=== PATIENT | female | born 1935 | race Caucasian/White ===

== ENCOUNTER → 2016-06-28 | Outpatient (CLI) | payer MEDICARE, OTHER ==
--- NOTE | 2016-06-30 03:49 | EEG ---
DATE OF SERVICE: 06/28/2016 EEG NUMBER: [id number] OBJECTIVE: This is a 80-year-old female patient with history of dementia and confusion. EEG was requested to evaluate cerebral activity and help rule out subclinical seizure. METHODS: Twenty electrodes were applied according to the international 10-20 electrode placement system. EKG monitoring, hyperventilation, intermittent photic stimulation, monopolar and bipolar montages are routinely utilized. The record was obtained on a digital system with video monitoring. FINDINGS: 1. Background: The patient was recorded in the awake, drowsy and sleep states. The overall background amplitude is 5-10 microvolts. A posterior dominant rhythm of 8 Hz is observed. 2. Abnormalities: No specific epileptiform discharge or electrographic seizure is seen. No focal or diffuse slowing, artifact noted. 3. Activation: Hyperventilation was performed with good efforts and normal response. Intermittent photic stimulation was performed with photic driving. Photoparoxysmal response was noted. No specific epileptiform discharge or electrographic seizure induced. IMPRESSION: This EEG is a borderline study for the awake, drowsy, and sleep states. The overall background amplitude is mildly low. Photoparoxysmal response noted. No focal, lateralizing, specific epileptiform discharge or electrographic seizure is seen. MIKE BRENNER MD DR: FEMI/so JOB#: [id number] / [id number] REX
== END | disposition home or self-care (01) ==
LOC: RT 08:15
PROVIDERS: ATTEND Psychiatry & Neurology Neurology
DX: F03.90 Unspecified dementia, unspecified severity, without behavioral disturbance, psychotic disturbance, mood disturbance, and anxiety (principal)
CPT/HCPCS: 95816

== ENCOUNTER 2019-10-24 10:13 | Inpatient (IN) | payer MEDICARE, OTHER ==
[~2019-10-24] VITALS: Ht 162.6 cm; Wt 69.7 kg
[2019-10-24 09:28] VITALS: BP 125/86
[2019-10-24] MEDS ORDERED: POTASSIUM CHLORIDE 20 MEQ TABLET.ER. PO ONE (11:15)
[2019-10-24 11:30] VITALS: BP 143/64
--- NOTE | 2019-10-24 11:47 | HP ---
ADMIT DATE: 10/24/2019 HISTORY OF PRESENT ILLNESS: The patient is an 83-year-old female patient who presented this morning to the Emergency Room of [facility] with recurrent bouts of cough with hemoptysis. She has been coughing up a teaspoon size bright red blood. It started yesterday. She has had previous history of hemoptysis. She was admitted in 2018 with similar presentation and at that time she apparently was diagnosed with postobstructive pneumonia as he was found to have dense consolidation in her left upper lobe; however, 2 bronchoscopies have been negative for malignancy according to her record. At that time, she also has 20-pound weight loss and when I asked her this morning, she stated that she also had lost about 10 pounds recently and that is unintentional. She denied any chest pain or shortness of breath. Denied any chills, rigors or fever. She was investigated in the Emergency Room of [facility] and has had lab work and a CT scan of the chest. Her lab work showed that her hemoglobin is 11.9, hematocrit 35.7 with normal white cell count and platelets. Her chemistry was unremarkable. Her D-dimer was slightly elevated at 0.625, however, prothrombin time, INR and aPTT were normal. Urinalysis is unremarkable. Tox screen was negative and her chest x-ray showed that the patient has left upper lobe apical nodular opacity seen, although there is left apical opacities were seen on prior CT and radiographic exams and upon recommendation of the radiologist, she underwent CT angio of the chest and it did show that the patient has no evidence of acute pulmonary embolus. She has left upper lobe mass extends to the left hilum morphologically suspicious for malignancy. She has bilateral hilar lymphadenopathy may represent metastatic disease. Prominent mediastinal lymph nodes may also represent metastatic disease, although not enlarged by size criteria. She has also cholelithiasis and because of the recurrent episode of hemoptysis, a decision was made to transfer to [facility] to consult the lead ingot molder to monitor her H and H and transfuse as needed. PAST MEDICAL HISTORY: Significant for hypertension, hyperlipidemia and generalized osteoarthritis. She is also known to have glaucoma. She apparently has a history of bronchial lesion, seen initially by ____ in March 2017, had a bronchoscopy, which really was completely negative except for inflammatory type cells, negative for malignancy, growth TP fungus. She did see Dr. Crocker on 05/06/2017 when she had rigid bronchoscopy with biopsies, lavage, which just revealed inflammation and endoluminal granulation tissue. At that time she was suggested that she may need debulking of this lesion to prevent postobstructive pneumonia. Apparently, the patient declined the offer. She has multiple other medical problems including as I stated hypertension, hyperlipidemia, osteoarthritis, osteoporosis, and glaucoma. She does carry a diagnosis of dementia. PAST SURGICAL HISTORY: Significant for repair of a broken nose in 1981, Bartholin cyst in 1960 and two bronchoscopies in late 2016. FAMILY HISTORY: Her mother of cancer. Father with cardiac issue and sister with breast cancer. SOCIAL HISTORY: The patient is and has a son and 2 daughters. She never smoked, does not drink alcohol or recreational drugs. Her daughter lives with her. ALLERGIES: SHE IS ALLERGIC TO AMOXICILLIN. MEDICATIONS: She is currently on following medications: She is on Aricept 5 mg at bedtime, apixaban 5 mg twice a day, simvastatin 20 mg once a day, amlodipine besylate 5 mg daily, Namenda 7 mg at bedtime, hydrochlorothiazide 25 mg once a day, timolol maleate 1 drop to both eyes twice a day and Azopt 1 drop to both eyes 3 times a day. She is on travoprost 1 drop to both eyes at bedtime. REVIEW OF SYSTEMS: As per history of present illness. PHYSICAL EXAMINATION: GENERAL: When I examined her, she looked well and was clearly in no apparent respiratory distress. No pallor, jaundice, cyanosis or thyromegaly. No jugular venous distention. No limb edema. VITAL SIGNS: Her heart rate was 77, blood pressure was 142/68, temperature was 98, respiratory rate was 22 and oxygen saturation was 100% on room air. HEAD, EYES, EARS, NOSE AND THROAT: Showed normocephalic, atraumatic. NECK: Supple. HEART: Showed normal first and second heart sounds. No gallop, rub or murmur. CHEST: Clear to auscultation. No crepitation or rhonchi. ABDOMEN: Distended, soft, nontender. NEUROLOGIC: She was awake, alert, responding appropriately. All cranial nerves intact. EXTREMITIES: She moves extremities without difficulty. LABORATORY DATA: This morning showed a white cell count 6700, hemoglobin 12, hematocrit 36, MCV 92, and platelet count 108,000. Her serum sodium was 141, potassium 3.1, chloride 103, bicarbonate 27, anion gap of 11, BUN 19, creatinine 1, estimated GFR was 53 mL per minute. Her glucose was 96, calcium was 8.8, magnesium was 2.1. Total bilirubin, AST, ALT, alkaline phosphatase were normal. Total protein was 7.4, albumin was 3.1. Her prothrombin time was 9.3, INR of 0.9, aPTT was 24 and D-dimer was 0.65. Her toxic screen was negative and urinalysis is essentially unremarkable. Her CT angio of the chest showed that she has no evidence of acute pulmonary embolism. Her left upper lobe mass extends to the left hilum, morphologically suspicious for malignancy. She has bilateral hilar lymphadenopathy may represent metastatic disease, prominent mediastinal lymph nodes may also represent metastatic disease, although not enlarged in size criteria. PLAN: I will make sure that the patient is not on any anticoagulant. She has been on apixaban and we will monitor her H and H. I have already consulted Dr. Thompson to see her. Meanwhile, we will continue all her other medications. LIBIA CANELA MD DR: NIKI/so JOB#: [id number] / [id number]
--- NOTE | 2019-10-24 12:17 | CONS ---
DATE OF CONSULTATION: PULMONARY CONSULTATION ATTENDING PHYSICIAN: Dr. Sharpe. REASON FOR CONSULTATION: Hemoptysis, lung mass. HISTORY OF PRESENT ILLNESS: The patient is an 83-year-old female who has no significant tobacco history. She was initially found to have a huge mass in the left upper lobe about 9.3 cm in size. She had a bronchoscopy, which was negative except for inflammatory cells and there was no growths of TB or fungus. Then, she had seen a thoracic surgeon and had a rigid bronchoscopy with biopsies and lavage and it also revealed inflammation. The patient has been followed up at . In 2017, she also had a small pulmonary embolism for which she was treated with anticoagulation, but due to future hemoptysis, it was subsequently stopped. She said she has not had a followup at for the last year or so. She was brought into the hospital from [place] with some hemoptysis. She says she has a mild cough, no fever, no chills, no chest pains. She has overall 10-pound weight loss in the last 6 months or so. She has no pets at home. As a child, [place] farm but no longer lives there. No nausea, vomiting, no headaches. No focal weakness. PAST MEDICAL HISTORY: History of extensive mass-like density in the left upper lobe and as discussed above, previous flexible bronchoscopy as well as rigid bronchoscopy revealed no evidence of any malignancy, TB or fungus. History of repair of a broken nose in 1981 and Bartholin cyst in 1960. FAMILY HISTORY: Mother of cancer. Father of cardiac issues. SOCIAL HISTORY: Never smoked. No history of alcohol use. MEDICATIONS: Reviewed as listed in the [facility]. REVIEW OF SYSTEMS: Twelve-point system obtained. Pertinent positives discussed in my history of present illness, otherwise noncontributory. All systems that were negative were reviewed as well. PHYSICAL EXAMINATION: VITAL SIGNS: Reviewed. Stable. HEENT: Sclerae nonicteric. NECK: Supple. LUNGS: With diminished breath sounds. CARDIOVASCULAR: With a regular rate. ABDOMEN: Soft, nontender. EXTREMITIES: With no pitting edema. LABORATORY DATA: Have been ordered and are pending. CT chest was reviewed, which was done today. I have reviewed all the CAT scans as far back as 2017. There is a left upper lobe mass-like density, which extends to the left hilum. There is bilateral hilar adenopathy and cholelithiasis. There was no evidence of pulmonary embolism. There is some bronchiectasis within the mass itself. IMPRESSION: 1. 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 At one point, she did cough up a stone and she probably may have broncholiths endobronchially, resulting in chronic obstruction and postobstructive pneumonia. Previous flexible bronchoscopy and rigid bronchoscopy done in 2017 revealed no evidence of malignancy and no evidence of any fungus or tuberculosis. 2. No significant tobacco history. 3. Mild hilar adenopathy, which could be reactive. RECOMMENDATIONS: 1. I have discussed with Dr. Sharpe. At this point, we will treat with antibiotics to reduce any airway inflammation/ superinfection. 2. If hemoptysis persists, we may consider doing bronchoscopy vs IR consult for Bronchial angiogram 3. The patient would benefit from a repeat CT chest as an outpatient in 4-6 months. 4. The patient to follow with [facility] once discharged. 5. We will follow along with you. Discussed with RN and Dr Sharpe SUSANNAH HAM MD DR: WILLIAM/so JOB#: [id number] / [id number] REX
[2019-10-24] MEDS: TORSEMIDE 20 MG TABLET. PO SCH (12:54)
[2019-10-24 15:20] VITALS: BP 118/57
[2019-10-24 16:41] LABS: HEMATOCRIT 34.1 % (36.0-47.0); HEMOGLOBIN 11.6 g/dL (12.0-15.5)
[2019-10-24 19:29] VITALS: BP 118/51
[2019-10-24] MEDS: POTASSIUM CHLORIDE 20 MEQ TABLET.ER. PO SCH (20:28)
[2019-10-24 22:33] VITALS: BP 120/53
--- NOTE | 2019-10-25 02:00 | NUR ---
Patient coughing and had hemoptosis in multiple tissues. Patient denies any shortness of breathe or difficulty breathing.
[2019-10-25 03:47] VITALS: BP 136/56
[2019-10-25 05:46] LABS: HEMATOCRIT 33.4 % (36.0-47.0); HEMOGLOBIN 11.3 g/dL (12.0-15.5); RED BLOOD COUNT 3.65 x10^6/uL (3.50-5.40); RED CELL DISTRIBUTION WIDTH 13.1 % (11.5-14.5); WHITE BLOOD COUNT 7.7 x10^3/uL (4.0-11.0)
[2019-10-25 06:01] LABS: CALCIUM 8.9 mg/dL (8.5-10.1); CREATININE 1.2 mg/dL (0.6-1.0); POTASSIUM 4.1 mmol/L (3.5-5.1)
[2019-10-25 07:00] VITALS: BP 142/65
[2019-10-25] MEDS: TORSEMIDE 20 MG TABLET. PO SCH (08:27)
[2019-10-25] MEDS: POTASSIUM CHLORIDE 20 MEQ TABLET.ER. PO SCH ×2 (08:28→21:40)
--- NOTE | 2019-10-25 10:36 | PDOC ---
PULMONARY PROGRESS NOTES Subjective hemoptysis has reduced, now minimal dark tinged secretions Remains on room air Denies and SOA and reduced coughing Vitals Vital Signs Date Time Temp Pulse Resp B/P (MAP) Pulse Ox O2 Delivery O2 Flow Rate FiO2 10/25/19 08:00 Room Air 10/25/19 07:00 98.5 68 18 142/65 (90) 97 98.5 ROS: No Nausea, No Chest Pain, No Abdominal Pain, No Increase Cough General: Alert, Oriented X4 Lungs: Clear Cardiovascular: S1, S2 Abdomen: Soft, Non-tender Neuro Exam: Alert Extremities: No Edema Skin: Warm, Dry Labs Laboratory Tests Test 10/24/19 16:30 10/25/19 05:00 Hemoglobin 11.6 g/dL (12.0-15.5) 11.3 g/dL (12.0-15.5) Hematocrit 34.1 % (36.0-47.0) 33.4 % (36.0-47.0) White Blood Count 7.7 x10^3/uL (4.0-11.0) Red Blood Count 3.65 x10^6/uL (3.50-5.40) Mean Corpuscular Volume 92 fL (79-100) Mean Corpuscular Hemoglobin 31 pg (25-35) Mean Corpuscular Hemoglobin Concent 34 g/dL (31-37) Red Cell Distribution Width 13.1 % (11.5-14.5) Platelet Count 189 x10^3/uL (140-400) Sodium Level 143 mmol/L (136-145) Potassium Level 4.1 mmol/L (3.5-5.1) Chloride Level 108 mmol/L (98-107) Carbon Dioxide Level 24 mmol/L (21-32) Anion Gap 11 (6-14) Blood Urea Nitrogen 19 mg/dL (7-20) Creatinine 1.2 mg/dL (0.6-1.0) Estimated GFR (Cockcroft-Gault) 43.0 Glucose Level 96 mg/dL (70-99) Calcium Level 8.9 mg/dL (8.5-10.1) Laboratory Tests Test 10/24/19 16:30 10/25/19 05:00 Hemoglobin 11.6 g/dL (12.0-15.5) 11.3 g/dL (12.0-15.5) Hematocrit 34.1 % (36.0-47.0) 33.4 % (36.0-47.0) White Blood Count 7.7 x10^3/uL (4.0-11.0) Red Blood Count 3.65 x10^6/uL (3.50-5.40) Mean Corpuscular Volume 92 fL (79-100) Mean Corpuscular Hemoglobin 31 pg (25-35) Mean Corpuscular Hemoglobin Concent 34 g/dL (31-37) Red Cell Distribution Width 13.1 % (11.5-14.5) Platelet Count 189 x10^3/uL (140-400) Sodium Level 143 mmol/L (136-145) Potassium Level 4.1 mmol/L (3.5-5.1) Chloride Level 108 mmol/L (98-107) Carbon Dioxide Level 24 mmol/L (21-32) Anion Gap 11 (6-14) Blood Urea Nitrogen 19 mg/dL (7-20) Creatinine 1.2 mg/dL (0.6-1.0) Estimated GFR (Cockcroft-Gault) 43.0 Glucose Level 96 mg/dL (70-99) Calcium Level 8.9 mg/dL (8.5-10.1) Impression . IMPRESSION: 1. 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 At one point, she did cough up a stone and she probably may have broncholiths endobronchially, resulting in chronic obstruction and postobstructive pneumonia. Previous flexible bronchoscopy and rigid bronchoscopy done in 2017 revealed no evidence of malignancy and no evidence of any fungus or tuberculosis. 2. No significant tobacco history. 3. Mild hilar adenopathy, which could be reactive. Plan . RECOMMENDATIONS: Stable from respiratory stand point, remains on room air Continue ABX No need for bronchoscopy vs IR consult for Bronchial angiogram at this time as hemoptysis has reduced The patient would benefit from a repeat CT chest as an outpatient in 4-6 months. Patient instructed to schedule follow up with previous shearing machine operator at upon D/C Anticipate D/C home in [address] Dell Davis/SUSANNAH VELIZ RN, MD Oct 25, 2019 10:36
[2019-10-25 11:00] VITALS: BP 136/63
[2019-10-25 15:00] VITALS: BP 121/54
[2019-10-25 19:37] VITALS: BP 136/54
[2019-10-25 22:39] VITALS: BP 142/60
--- NOTE | 2019-10-25 23:34 | PN ---
DATE: 10/25/2019 SUBJECTIVE: The patient is resting, slightly propped up in bed, no apparent distress, awake, alert. On questioning her, she did have some hemoptysis last night, none this morning. PHYSICAL EXAMINATION: GENERAL: When I examined her, she looked pale, but no jaundice, cyanosis or thyromegaly. No jugular venous distention. No limb edema. VITAL SIGNS: Her heart rate was 68, blood pressure was 142/65, temperature was 98.5, respiratory rate was 18 and oxygen saturation was 97% on room air. HEAD, EYES, EARS, NOSE AND THROAT: Showed normocephalic, atraumatic. NECK: Supple. HEART: Showed normal first and second heart sounds with no gallop, rub or murmur. CHEST: Clear to auscultation. No crepitation or rhonchi. ABDOMEN: Distended, soft, tender. NEUROLOGIC: She is grossly intact. Her intake and output are incompletely recorded. LABORATORY DATA: Her lab work this morning showed a white cell count 7700, hemoglobin 11, hematocrit 33, MCV 92, and platelet count of 189,000. Serum sodium 143, potassium 4.1, chloride 108, bicarbonate 24, anion gap of 11, BUN 19, creatinine 1.2, estimated GFR was 43 mL per minute. Her glucose was 96 and calcium was 8.9. 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 The patient has been extensively investigated before with flexible as well as rigid bronchoscopy and no evidence of malignancy. There was also no evidence of tuberculosis or fungal infection. PLAN: To monitor her. We will check her lab work tomorrow and if she has had no further episodes of hemoptysis, we will discharge her home to follow with her scale tester at [facility]. LIBIA CANELA MD DR: NIKI/so JOB#: [id number] / [id number]
[2019-10-26 03:24] VITALS: BP 119/53
[2019-10-26 07:00] VITALS: BP 147/63
[2019-10-26 08:03] LABS: HEMATOCRIT 33.7 % (36.0-47.0); HEMOGLOBIN 11.5 g/dL (12.0-15.5); RED BLOOD COUNT 3.72 x10^6/uL (3.50-5.40); RED CELL DISTRIBUTION WIDTH 12.8 % (11.5-14.5); WHITE BLOOD COUNT 6.4 x10^3/uL (4.0-11.0)
[2019-10-26 08:13] LABS: ALBUMIN 2.9 g/dL (3.4-5.0); ALBUMIN/GLOBULIN RATIO 0.7 (1.0-1.7); CALCIUM 8.9 mg/dL (8.5-10.1); CREATININE 1.1 mg/dL (0.6-1.0); GFR 47.6; TOTAL BILIRUBIN 0.4 mg/dL (0.2-1.0)
[2019-10-26] MEDS ORDERED: LEVO500T59 PO (10:26)
--- NOTE | 2019-10-26 10:30 | PDOC ---
PULMONARY PROGRESS NOTES Subjective hemoptysis has reduced, now minimal dark tinged secretions Remains on room air Denies and SOA and reduced coughing Vitals Vital Signs Date Time Temp Pulse Resp B/P (MAP) Pulse Ox O2 Delivery O2 Flow Rate FiO2 10/26/19 07:00 98.1 62 18 147/63 (91) 97 Room Air 98.1 ROS: No Nausea, No Chest Pain, No Abdominal Pain, No Increase Cough General: Alert, Oriented X4 Lungs: Clear Cardiovascular: S1, S2 Abdomen: Soft, Non-tender Neuro Exam: Alert Extremities: No Edema Skin: Warm, Dry Labs Laboratory Tests Test 10/24/19 16:30 10/25/19 05:00 10/26/19 07:45 Hemoglobin 11.6 g/dL (12.0-15.5) 11.3 g/dL (12.0-15.5) 11.5 g/dL (12.0-15.5) Hematocrit 34.1 % (36.0-47.0) 33.4 % (36.0-47.0) 33.7 % (36.0-47.0) White Blood Count 7.7 x10^3/uL (4.0-11.0) 6.4 x10^3/uL (4.0-11.0) Red Blood Count 3.65 x10^6/uL (3.50-5.40) 3.72 x10^6/uL (3.50-5.40) Mean Corpuscular Volume 92 fL (79-100) 91 fL (79-100) Mean Corpuscular Hemoglobin 31 pg (25-35) 31 pg (25-35) Mean Corpuscular Hemoglobin Concent 34 g/dL (31-37) 34 g/dL (31-37) Red Cell Distribution Width 13.1 % (11.5-14.5) 12.8 % (11.5-14.5) Platelet Count 189 x10^3/uL (140-400) 194 x10^3/uL (140-400) Sodium Level 143 mmol/L (136-145) 141 mmol/L (136-145) Potassium Level 4.1 mmol/L (3.5-5.1) 4.0 mmol/L (3.5-5.1) Chloride Level 108 mmol/L (98-107) 107 mmol/L (98-107) Carbon Dioxide Level 24 mmol/L (21-32) 25 mmol/L (21-32) Anion Gap 11 (6-14) 9 (6-14) Blood Urea Nitrogen 19 mg/dL (7-20) 20 mg/dL (7-20) Creatinine 1.2 mg/dL (0.6-1.0) 1.1 mg/dL (0.6-1.0) Estimated GFR (Cockcroft-Gault) 43.0 47.6 Glucose Level 96 mg/dL (70-99) 99 mg/dL (70-99) Calcium Level 8.9 mg/dL (8.5-10.1) 8.9 mg/dL (8.5-10.1) BUN/Creatinine Ratio 18 (6-20) Total Bilirubin 0.4 mg/dL (0.2-1.0) Aspartate Amino Transf (AST/SGOT) 17 U/L (15-37) Alanine Aminotransferase (ALT/SGPT) 11 U/L (14-59) Alkaline Phosphatase 77 U/L (46-116) Total Protein 7.0 g/dL (6.4-8.2) Albumin 2.9 g/dL (3.4-5.0) Albumin/Globulin Ratio 0.7 (1.0-1.7) Laboratory Tests Test 10/26/19 07:45 White Blood Count 6.4 x10^3/uL (4.0-11.0) Red Blood Count 3.72 x10^6/uL (3.50-5.40) Hemoglobin 11.5 g/dL (12.0-15.5) Hematocrit 33.7 % (36.0-47.0) Mean Corpuscular Volume 91 fL (79-100) Mean Corpuscular Hemoglobin 31 pg (25-35) Mean Corpuscular Hemoglobin Concent 34 g/dL (31-37) Red Cell Distribution Width 12.8 % (11.5-14.5) Platelet Count 194 x10^3/uL (140-400) Sodium Level 141 mmol/L (136-145) Potassium Level 4.0 mmol/L (3.5-5.1) Chloride Level 107 mmol/L (98-107) Carbon Dioxide Level 25 mmol/L (21-32) Anion Gap 9 (6-14) Blood Urea Nitrogen 20 mg/dL (7-20) Creatinine 1.1 mg/dL (0.6-1.0) Estimated GFR (Cockcroft-Gault) 47.6 BUN/Creatinine Ratio 18 (6-20) Glucose Level 99 mg/dL (70-99) Calcium Level 8.9 mg/dL (8.5-10.1) Total Bilirubin 0.4 mg/dL (0.2-1.0) Aspartate Amino Transf (AST/SGOT) 17 U/L (15-37) Alanine Aminotransferase (ALT/SGPT) 11 U/L (14-59) Alkaline Phosphatase 77 U/L (46-116) Total Protein 7.0 g/dL (6.4-8.2) Albumin 2.9 g/dL (3.4-5.0) Albumin/Globulin Ratio 0.7 (1.0-1.7) Impression . IMPRESSION: 1. 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 At one point, she did cough up a stone and she probably may have broncholiths endobronchially, resulting in chronic obstruction and postobstructive pneumonia. Previous flexible bronchoscopy and rigid bronchoscopy done in 2017 revealed no evidence of malignancy and no evidence of any fungus or tuberculosis. 2. No significant tobacco history. 3. Mild hilar adenopathy, which could be reactive. Plan . RECOMMENDATIONS: Stable from respiratory stand point, remains on room air Continue ABX No need for bronchoscopy or Bronchial angiogram at this time as hemoptysis has reduced The patient would benefit from a repeat CT chest as an outpatient in 4-6 months. Patient instructed to schedule follow up with previous oxyacetylene cutter at upon D/C Anticipate D/C home today Discussed with Dr. Dell Davis/SUSANNAH VELIZ RN, MD Oct 26, 2019 10:30
[2019-10-26 11:09] VITALS: BP 139/60
--- NOTE | 2019-10-26 11:52 | NUR ---
SS following for discharge planning. SS reviewed pt chart and discussed with pt RN. Pt is from home with daughter and is currently on room air. Discharge order on the chart for home with self care.
--- NOTE | 2019-10-26 12:30 | DS ---
DATE OF DISCHARGE: HOSPITAL COURSE: The patient is an 83-year-old female patient, who came with recurrent episode of hemoptysis that started the day before admission. She was seen in the Emergency Room of [facility] and was transferred here for further evaluation and to consult the health and safety manager. She apparently is known to have a mass in her left upper lobe that was extensively investigated before. She has 2 bronchoscopies that were negative for malignancy. The x-ray showed that the patient had left apical opacities seen and CT angio of the chest showed the patient has no evidence of acute pulmonary embolism. She has left upper lobe mass extending to the left hilum morphologically suspicious for malignancy. She has bilateral hilar lymphadenopathy that may represent metastatic disease. She has also prominent mediastinal lymph nodes, may also represent metastatic disease, although not enlarged by size criteria. 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 We monitored her for the last few days and her H and H remained stable. She has no further episode of hemoptysis and as she remained stable, a decision was made to discharge her home to continue with oral antibiotic and to follow with her health and safety manager at [facility]. PHYSICAL EXAMINATION: GENERAL: When I saw her this morning, she looked well and was clearly in no apparent respiratory distress. No pallor, jaundice, cyanosis or thyromegaly. No jugular venous distention or limb edema. VITAL SIGNS: Her heart rate was 62, blood pressure was 147/63, temperature 98.1, respiratory rate was 18 and oxygen saturation was 97% on room air. HEAD, EYES, EARS, NOSE AND THROAT: Showed normocephalic, atraumatic. NECK: Supple. HEART: Showed normal first and second heart sounds. No gallop or murmur. CHEST: Clear to auscultation. No crepitation or rhonchi. ABDOMEN: Distended, soft, nontender. No guarding or rigidity. No organomegaly. All hernial orifice intact. Bowel sounds normal. NEUROLOGIC: She is awake, alert, responding appropriately. All her cranial nerves intact. EXTREMITIES: She moves extremities without difficulty. She ambulates without assistance or assistive devices. LABORATORY DATA: Her lab work this morning showed a white cell count of 6400, hemoglobin 11.5, hematocrit 33.7, MCV 91 and platelet count of 194,000. Her chemistry showed a serum sodium 141, potassium 4, chloride 107, bicarbonate 25, anion gap of 9, BUN 20, creatinine 1.1, estimated GFR was 47 mL per minute. Her glucose was 99, calcium was 8.9. Total bilirubin, AST, ALT, alkaline phosphatase were normal. Total protein was 7, albumin was 2.9. DISCHARGE MEDICATIONS: The patient was discharged home to continue on her Levaquin 500 mg once a day for 7 more days, furosemide 20 mg once a day and potassium chloride 20 mEq twice a day. FINAL DISCHARGE DIAGNOSIS: Recurrent episode of hemoptysis secondary to her left upper lobe postobstructive process in her left upper lobe with an acute inflammation. She has mild hilar lymphadenopathy that could be reactive. As her hemoptysis subsided and her H and H remained stable, a decision was made to discharge her home to continue with oral antibiotic and to follow with her health and safety manager at [facility]. LIBIA CANELA MD DR: NIKI/so JOB#: [id number] / [id number]
--- NOTE | 2019-10-26 14:45 | NUR ---
Discharge Note: RAUL DEL REAL Discharge instructions and discharge home medications reviewed with Patient and a copy given. All questions have been answered and understanding verbalized. The following instructions and handouts were given: hemoptysis, follow up at and with her primary, medications. Discontinued lines and drains: IV removed, no lines present. Patient discharged to Home. left via wheelchair to her son's private vehicle.
== END 2019-10-26 14:30 | disposition home or self-care (01) | DRG 194 ==
LOC: 2 SOUTH 10:13
PROVIDERS: ADMIT Internal Medicine; ATTEND Internal Medicine
DX: J18.9 Pneumonia, unspecified organism (principal); R04.2 Hemoptysis; I10 Essential (primary) hypertension; E78.5 Hyperlipidemia, unspecified; F03.90 Unspecified dementia, unspecified severity, without behavioral disturbance, psychotic disturbance, mood disturbance, and anxiety; K80.20 Calculus of gallbladder without cholecystitis without obstruction; M15.9 Polyosteoarthritis, unspecified; M81.0 Age-related osteoporosis without current pathological fracture; Z80.3 Family history of malignant neoplasm of breast; Z86.711 Personal history of pulmonary embolism
CPT/HCPCS: 36415; 80048; 80053; 85014; 85018; 85027; J1956; G0378